=== PATIENT | male | born 1990 | race African-American/Black ===

== ENCOUNTER 2017-05-12 10:06 | Inpatient (IN) | payer SELFPAY ==
[~2017-05-12] VITALS: Ht 177.8 cm; Wt 74.8 kg
[2017-05-12] MEDS ORDERED: AMLODIPINE 5MG TABLET PO ONE (11:00)
[2017-05-12] MEDS ORDERED: SODIUM CHLORIDE 0.9% 1,000 ML IV ONE (11:00)
[2017-05-12 11:25] LABS: HEMATOCRIT. 42.5 % (42.0-52.0); HEMOGLOBIN. 14.1 g/dL (14.0-18.0); MEAN CORPUSCULAR HEMOGLOBIN 24.7 pg (28.0-32.0); MEAN CORPUSCULAR VOLUME 74.2 fL (80.0-94.0); MEAN PLATELET VOLUME 7.5 fl (7.4-10.4); PLATELET 170 x1000/uL (130-400); RED BLOOD CELL COUNT 5.73 mill/uL (4.7-6.1); RED CELL DISTRIBUTION WIDTH 13.2 % (11.6-14.6)
[2017-05-12 11:36] LABS: CHLORIDE 99 mEq/L (98-107); INR 1.1
[2017-05-12 11:42] LABS: TROPONIN I < 0.02 ng/mL (0.00-0.04)
[2017-05-12 11:50] LABS: PLATELET ESTIMATE NORMAL
[2017-05-12 12:08] LABS: HEPATITIS B SURFACE ANTIGEN NEGATIVE
[2017-05-12 12:35] LABS: HEPATITIS B CORE AB IGM NEGATIVE
[2017-05-12 12:36] LABS: HEPATITIS A AB IGM NEGATIVE (NEGATIVE)
[2017-05-12 15:14] LABS: CLARITY URINE TURBID (CLEAR); COLOR URINE DARK YELLOW (YELLOW); KETONES URINE 2+ (NEGATIVE); LEUKOCYTE ESTERASE URINE 1+ (NEGATIVE); NITRITE URINE NEGATIVE (NEGATIVE); OCCULT BLOOD URINE 3+ (NEGATIVE); PROTEIN URINE 2+ (NEGATIVE); SPECIFIC GRAVITY URINE 1.036 (1.005-1.030)
[2017-05-12 15:42] LABS: *AMPHETAMINES SCREEN URINE NEGATIVE (NEGATIVE); *BARBITURATES SCREEN URINE NEGATIVE (NEGATIVE); *BENZODIAZEPINES SCREEN URINE NEGATIVE (NEGATIVE); *COCAINE SCREEN URINE NEGATIVE (NEGATIVE); CANNABINOID URINE SCREEN PRESUMTIVE POSITIVE (NEGATIVE); METHADONE URINE SCREEN NEGATIVE (NEGATIVE); OPIATES URINE SCREEN NEGATIVE (NEGATIVE); PHENCYCLIDINE URINE SCREEN NEGATIVE (NEGATIVE)
[2017-05-12 20:00] VITALS: BP 105/58
[2017-05-12] MEDS ORDERED: CLONIDINE 0.1MG TABLET PO PRN (20:00)
[2017-05-12] MEDS ORDERED: ONDANSETRON HCL 4MG/2ML VIAL IV PRN (20:00)
[2017-05-12 20:43] VITALS: BP 108/58
[2017-05-12] MEDS: SODIUM CHLORIDE 0.9% 1,000 ML IV SCH (21:57)
[2017-05-12] MEDS: ACETAMINOPHEN 325MG TABLET PO PRN (21:59)
[2017-05-12] MEDS ORDERED: MAGNESIUM 2 G PREMIX 50 ML IV NR (22:00)
[2017-05-13] MEDS: CEFTRIAXONE 1 G PREMIX 50 ML IV SCH ×2 (00:13→22:05)
[2017-05-13 00:24] VITALS: BP 110/50
[2017-05-13 04:00] VITALS: BP 107/65
[2017-05-13] MEDS: SODIUM CHLORIDE 0.9% 1,000 ML IV SCH ×2 (04:52→17:17)
[2017-05-13 07:36] LABS: CHLORIDE 105 mEq/L (98-107)
[2017-05-13 08:00] VITALS: BP 140/72
[2017-05-13 08:43] LABS: HEMATOCRIT. 40.6 % (42.0-52.0); HEMOGLOBIN. 13.5 g/dL (14.0-18.0); MEAN CORPUSCULAR HEMOGLOBIN 25.1 pg (28.0-32.0); MEAN CORPUSCULAR VOLUME 75.6 fL (80.0-94.0); MEAN PLATELET VOLUME 7.7 fl (7.4-10.4); PLATELET 146 x1000/uL (130-400); RED BLOOD CELL COUNT 5.37 mill/uL (4.7-6.1); RED CELL DISTRIBUTION WIDTH 13.3 % (11.6-14.6)
[2017-05-13 12:00] VITALS: BP 123/68
[2017-05-13 16:00] VITALS: BP 137/67
[2017-05-13] MEDS ORDERED: VANCOMYCIN 1,500 MG in SODIUM CHLORIDE 0.9% 250 ML IV NR (17:30)
[2017-05-13] MEDS ORDERED: VANCOMYCIN 1,250 MG in SODIUM CHLORIDE 0.9% 250 ML IV NR (17:30)
[2017-05-13 18:46] LABS: ATYPICAL LYMPHOCYTES 2; PLATELET ESTIMATE NORMAL
[2017-05-13 20:00] VITALS: BP 137/84
[2017-05-13] MEDS ORDERED: METHYLPREDNISOLONE SOD SUCC 40 MG/ML VIAL IV NR (20:45)
[2017-05-13] MEDS ORDERED: DIPHENHYDRAMINE 50MG/ML VIAL IV PRN (20:45)
[2017-05-13] MEDS ORDERED: CEFAZOLIN SODIUM 1000MG/VIAL IV SCH (22:00)
[2017-05-13] MEDS ORDERED: CEFAZOLIN 1000MG PREMIX 50 ML IV SCH (22:00)
[2017-05-13] MEDS: ACETAMINOPHEN 325MG TABLET PO PRN (23:55)
[2017-05-14] VITALS: BP 112/60
[2017-05-14] MEDS ORDERED: VANCOMYCIN 1 G PREMIX 200 ML IV SCH (02:00)
[2017-05-14] MEDS: SODIUM CHLORIDE 0.9% 1,000 ML IV SCH ×2 (03:52→12:57)
[2017-05-14 03:54] VITALS: BP 122/69
[2017-05-14 08:00] VITALS: BP 139/77
[2017-05-14 11:50] LABS: HEMATOCRIT. 39.7 % (42.0-52.0); HEMOGLOBIN. 13.2 g/dL (14.0-18.0); MEAN CORPUSCULAR HEMOGLOBIN 25.1 pg (28.0-32.0); MEAN CORPUSCULAR VOLUME 75.4 fL (80.0-94.0); MEAN PLATELET VOLUME 7.3 fl (7.4-10.4); PLATELET 152 x1000/uL (130-400); RED BLOOD CELL COUNT 5.26 mill/uL (4.7-6.1); RED CELL DISTRIBUTION WIDTH 13.2 % (11.6-14.6)
[2017-05-14 11:56] LABS: CHLORIDE 105 mEq/L (98-107)
[2017-05-14 12:00] VITALS: BP 132/74
[2017-05-14 13:10] LABS: PLATELET ESTIMATE NORMAL
[2017-05-14 14:25] VITALS: BP 134/74
== END 2017-05-14 16:40 | disposition home or self-care (01) | DRG 465 ==
LOC: ER 10:06 → 6EST 16:29 → ENRESERV 19:22
PROVIDERS: ADMIT Internal Medicine; ATTEND Internal Medicine
DX: N20.0 Calculus of kidney (principal); N17.0 Acute kidney failure with tubular necrosis; E86.0 Dehydration; F12.10 Cannabis abuse, uncomplicated; J10.1 Influenza due to other identified influenza virus with other respiratory manifestations; M94.0 Chondrocostal junction syndrome [Tietze]; K59.00 Constipation, unspecified; N05.9 Unspecified nephritic syndrome with unspecified morphologic changes; N39.0 Urinary tract infection, site not specified; R31.0 Gross hematuria; Z80.0 Family history of malignant neoplasm of digestive organs; Z88.1 Allergy status to other antibiotic agents
CPT/HCPCS: 36415; 71045; 74176; 80048; 80053; 80305; 81003; 83036; 83605; 83735; 83880; 84484; 85025; 85610; 86705; 86709; 86803; 87040; 87086; 87340; 87804; 93005; 96360; 96361; 99285; J0690; J0696; J1200; J2920; J3370; J3475; J7030; J7050